=== PATIENT | male | born 1980 | race Caucasian/White ===

== ENCOUNTER 2022-11-03 12:05 | Emergency (ER) | payer OTHER ==
--- OUTSIDE RECORDS SUMMARY | 2022-11-03 12:08 | XMS REPORT | Continuity of Care Document ---
:1980 Author Organization [facility] t Address [address] [facility] [address] [place] [address] Care Team Providers Name Role Phone Delmer Galarza Attending Clinician Unavailable Payers Payer Name Policy Type Policy Number Effective Date Expiration Date S [facility] [employer] 6 [id number] Common Spiri t Blue Shield [facility] GBRP 53 [id number] 2019 Common Spiri t CLAIMS 00:00:00 [facility] Problems Condition Condition Condition Status Onset Resolution Last Treating Co mments Source Name Details Category Date Date Treatment Clinician Date Body mass Body mass Problem Com mon index 40+ index Spirit - severely (BMI) of - CH I obese 45.0-49.9 St in [facility] [id number] Other Problem Common obesity Spirit due to - [facility] [id number] Erectile Problem Comm on dysfunctio Spirit n, - [facility] unspecifie [facility] d erectile [facility] dysfunctio Medica l n type Center Tinea Tinea Problem Common pedis pedis [facility] [id number] Depression Problem Co mmon with Spirit anxiety [facility] Sleep Sleep Problem Common disorder disorder [facility] Seasonal Allergic Problem Commo n allergic rhinitis, Spiri t rhinitis seasonal [facility] Essential Benign Problem Common hypertensi essential Spi rit on HTN [facility] Arthralgia Arthralgia Problem C ommon [facility] [id number] Body mass Problem Com mon index Spirit [BMI] [facility] 33.0-33.9, [facility] Allergies, Adverse Reactions, Alerts Allergy Allergy Status Severity Reaction(s) Onset Inactive Treating Comm ents Source Name Type Date Date Clinician Oscar Moore Active Rash Common [facility] Social History Social Habit Start Date Stop Date Quantity Comments Source History of Tobacco Current Smoker Co mmon [facility] Use [facility] Sex Assigned At Com [facility] Smoking Status Start Date Stop Date Source Current Smoker 2022-09-19 00:00:00 Common Spiri t [facility] Medications Ordered Filled Start Stop Current Ordering Indication Dosage Frequency Signature Comments Components Source Medication Medication Date Date Medication? Clinician (SIG) Name Name Sildenafil Sildenafil 2022- No 1{table QD Sildenafil Citrate 50 Citrate 50 09-19 t_as_ne Citrate 50 MG MG 00:00: 00:00 eded} MG 00 :00 Sildenafil Sildenafil 2022- No 1{table QD Sildenafil Citrate 50 Citrate 50 09-19 t_as_ne Citrate 50 MG MG 00:00: 00:00 eded} MG 00 :00 Lexapro 10 Lexapro 10 No 1{table QD Lexapro 10 MG MG 8-29 t} MG 00:00: 00 Lexapro 10 Lexapro 10 No 1{table QD Lexapro 10 MG MG 8-29 t} MG 00:00: 00 Lexapro 10 Lexapro 10 No 1{table QD Lexapro 10 MG MG 8-29 t} MG 00:00: 00 Amlodipine- Amlodipine- 2019-0 Yes Delmer 1 tablet Common Olmesartan Olmesartan 4-21 Galarza Sp binh 00:00: - [facility] Dexamethaso Dexamethaso 2017- No 8mg Common ne ne 2 Spirit 00:00: - [facility] Dexamethaso Dexamethaso 2017- No 8mg Common ne ne 10-06 Spirit 00:00: - [facility] Dexamethaso Dexamethaso 2017- No 8mg Common ne ne 2 Spirit 00:00: - [facility] Dexamethaso Dexamethaso 2018-1 No 8mg Common ne ne 10-06 Spirit 00:00: - [facility] Dexamethaso Dexamethaso 2018- No 8mg Common ne ne 10-06 Spirit 00:00: - [facility] Dexamethaso Dexamethaso 2018-1 No 8mg Common ne ne 10-06 Spirit 00:00: - [facility] Dexamethaso Dexamethaso 2018- No 8mg Common ne ne 10-06 Spirit 00:00: - [facility] Dexamethaso Dexamethaso 2018-1 No 8mg Common ne ne 10-06 Spirit 00:00: - [facility] amLODIPine- amLODIPine- No 1{table QD amLODIPine Olmesartan Olmesartan t} -Olmesarta 10-20 MG 10-20 MG n 10-20 MG amLODIPine- amLODIPine- No 1{table QD amLODIPine Olmesartan Olmesartan t} -Olmesarta 10-20 MG 10-20 MG n 10-20 MG Lexapro 10 Lexapro 10 No 1{table QD Lexapro 10 MG MG t} MG Lexapro 10 Lexapro 10 No 1{table QD Lexapro 10 MG MG t} MG amLODIPine- amLODIPine- No 1{table QD amLODIPine Olmesartan Olmesartan t} -Olmesarta 10-20 MG 10-20 MG n 10-20 MG Lexapro 10 Lexapro 10 No 1{table QD Lexapro 10 MG MG t} MG amLODIPine- amLODIPine- No 1{table QD amLODIPine Olmesartan Olmesartan t} -Olmesarta 10-20 MG 10-20 MG n 10-20 MG amLODIPine- amLODIPine- No 1{table QD amLODIPine Olmesartan Olmesartan t} -Olmesarta 10-20 MG 10-20 MG n 10-20 MG amLODIPine- amLODIPine- No 1{table QD amLODIPine Olmesartan Olmesartan t} -Olmesarta 10-20 MG 10-20 MG n 10-20 MG amLODIPine- amLODIPine- No 1{table QD amLODIPine Olmesartan Olmesartan t} -Olmesarta 10-20 MG 10-20 MG n 10-20 MG amLODIPine- amLODIPine- No 1{table QD amLODIPine Olmesartan Olmesartan t} -Olmesarta 10-20 MG 10-20 MG n 10-20 MG Escitalopra Escitalopra Yes Delmer take 1 Common m Oxalate m Oxalate Galarza tablet by Spirit mouth once - [facility] day [facility] amLODIPine- amLODIPine- No 1{table QD amLODIPine Olmesartan Olmesartan t} -Olmesarta 10-20 MG 10-20 MG n 10-20 MG Vital Signs Vital Name Observation Time Observation Value Comments Source height 2022-09-19 09:00:00 69 [in_i] [facility] weight 2022-09-19 09:00:00 220 [lb_av] [facility] bmi 2022-09-19 09:00:00 32.48 kg/m2 [facility] height 2022-08-19 08:00:00 69 [in_i] [facility] weight 2022-08-19 08:00:00 224 [lb_av] [facility] bmi 2022-08-19 08:00:00 33.08 kg/m2 [facility] blood pressure 2022-08-19 08:00:00 130 mm[Hg] Common Spirit - systolic [facility] blood pressure 2022-08-19 08:00:00 72 mm[Hg] Common Spirit - diastolic [facility] height 2022-05-25 11:40:00 69 [in_i] [facility] weight 2022-05-25 11:40:00 225 [lb_av] [facility] temperature 2022-05-25 11:40:00 98 [degF] [facility] bmi 2022-05-25 11:40:00 33.22 kg/m2 [facility] blood pressure 2022-05-25 11:40:00 132 mm[Hg] Common Spirit - systolic [facility] blood pressure 2022-05-25 11:40:00 76 mm[Hg] Common Spirit - diastolic [facility] respiratory rate 2022-03-30 13:00:00 18 /min Comm on [facility] blood pressure 2022-03-30 13:00:00 135 mm[Hg] Common [facility] - systolic [facility] blood pressure 2022-03-30 13:00:00 82 mm[Hg] Common Spirit - diastolic [facility] height 2022-03-30 13:00:00 69 [in_i] Common S pirit [facility] weight 2022-03-30 13:00:00 229.9 [lb_av] [facility] temperature 2022-03-30 13:00:00 98.6 [degF] Common S pirit [facility] bmi 2022-03-30 13:00:00 33.95 kg/m2 [facility] S pirit [facility] oximetry 2022-03-30 13:00:00 99 % Common S pirit [facility] height 2022-02-17 08:20:00 69 [in_i] Common S pirit [facility] weight 2022-02-17 08:20:00 231.2 [lb_av] [facility] temperature 2022-02-17 08:20:00 98.1 [degF] Common S pirit [facility] bmi 2022-02-17 08:20:00 34.14 kg/m2 [facility] S pirit [facility] oximetry 2022-02-17 08:20:00 99 % [facility] S pirit [facility] respiratory rate 2022-02-17 08:20:00 18 /min Comm on [facility] blood pressure 2022-02-17 08:20:00 135 mm[Hg] Common Spirit - systolic [facility] blood pressure 2022-02-17 08:20:00 65 mm[Hg] Common Spirit - diastolic [facility] height 2021-07-07 08:00:00 69 [in_i] Common [facility] weight 2021-07-07 08:00:00 215 [lb_av] Common [facility] temperature 2021-07-07 08:00:00 98 [degF] [facility] bmi 2021-07-07 08:00:00 31.75 kg/m2 Common [facility] blood pressure 2021-07-07 08:00:00 130 mm[Hg] Common [facility] - systolic [facility] blood pressure 2021-07-07 08:00:00 76 mm[Hg] Common [facility] - diastolic [facility] Procedures This patient has no known procedures. Encounters Start End Encounter Admission Attending Care Care Encounter Source Date/Time Date/Time Type Type Clinicians Facility Department ID 2022-10-05 Outpatient Galarza, STLMLC STLMLC [id number] Common 16:31:00 Delmer [id number] [facility] 2022-09-16 Outpatient Galarza, STLMLC STLMLC [id number] Common 15:18:00 Delmer [facility] 2022-08-18 Outpatient Galarza, STLMLC STLMLC [id number] Common 11:09:00 Delmer [facility] 2022-08-17 Outpatient Galarza, STLMLC STLMLC [id number] Common 10:08:00 Delmer [facility] 2022-08-15 Outpatient Galarza, STLMLC STLMLC [id number] Common 12:57:01 Delmer [facility] 2022-08-08 Outpatient Galarza, STLMLC STLMLC [id number] Common 13:05:01 Delmer [facility] 2022-06-22 Outpatient Galarza, STLMLC STLMLC [id number] Common 15:36:01 Delmer [facility] 2022-05-25 Outpatient Galarza, STLMLC STLMLC [id number] Common 11:18:00 Delmer [facility] 2022-03-30 Outpatient Galarza, STLMLC STLMLC [id number] Common 13:04:00 Delmer [facility] 2022-03-29 Outpatient Galarza, STLMLC STLMLC [id number] Common 15:18:00 Delmer [facility] 2022-03-28 Outpatient Galarza, STLMLC STLMLC [id number] Common 14:34:00 Delmer [facility] 2021-09-29 Outpatient Galarza, STLMLC STLMLC [id number] Common 13:56:40 Delmer [facility] 2021-09-29 Outpatient Galarza, STLMLC STLMLC [id number] Common 12:59:05 Delmer [id number] [facility] 2021-09-29 Outpatient Galarza, STLMLC STLMLC [id number] Common 12:39:22 Delmer [id number] [facility] 2021-09-29 Outpatient Galarza, STLMLC STLMLC [id number] Common 11:42:46 Delmer 31522 [facility] 2021-09-29 Outpatient Galarza, STLMLC STLMLC [id number] Common 11:17:39 Delmer [address]3035 [facility] 2021-09-29 Outpatient Galarza, STLMLC STLMLC [id number] Common 11:15:42 Delmer 312[address] [facility] 2022-09-19 2022-09-19 OFFICE STLMLC STLMLC [id number] Co mmon 00:00:00 00:00:00 VISIT Spirit ESTAB PT - [facility] LEVEL 3 [facility] 2022-09-15 2022-09-15 (TEL) STLMLC STLMLC [id number] Co mmon 00:00:00 00:00:00 [facility] 2022-08-19 2022-08-19 OFFICE STLMLC STLMLC [id number] Co mmon 00:00:00 00:00:00 VISIT EST Spir it PT LEVEL 3 [facility] 2022-05-25 2022-05-25 OFFICE STLMLC STLMLC [id number] Co mmon 00:00:00 00:00:00 VISIT EST Spir it PT LEVEL 3 [facility] 2022-05-02 2022-05-02 (TEL) STLMLC STLMLC [id number] Co mmon 00:00:00 00:00:00 [facility] 2022-03-30 2022-03-30 OFFICE STLMLC STLMLC [id number] Co mmon 00:00:00 00:00:00 VISIT EST Spir it PT LEVEL 3 [facility] 2022-02-17 2022-02-17 OFFICE STLMLC STLMLC [id number] Co mmon 00:00:00 00:00:00 VISIT EST Spir it PT LEVEL 3 [facility] 2021-07-07 2021-07-07 OFFICE STLMLC STLMLC [id number] Co mmon 00:00:00 00:00:00 VISIT EST Spir it PT LEVEL 3 [facility] 2021-01-06 2021-01-06 Outpatient STLMLC STLMLC [id number] Common 00:00:00 00:00:00 [facility] 2020-12-04 2020-12-04 Outpatient STLMLC STLMLC [id number] Common 00:00:00 00:00:00 [facility] 2020-11-12 2020-11-12 Outpatient STLMLC STLMLC [id number] Common 00:00:00 00:00:00 [facility] 2020-05-08 2020-05-08 [facility] [id number] Common 08:10:00 08:10:[address] [facility] 2020-01-22 2020-01-22 Out[facility] [id number] Common 10:15:00 10:15:[address] [facility] 2019-12-24 2019-12-24 [facility] [id number] Common 14:00:00 14:00:[address] [facility] 2019-11-27 2019-11-27 Outpatient Henri Moise [id number] Common 14:00:00 14:00:00 t [employer] [facility] Results This patient has no known results.
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
[2022-11-03 13:10] VITALS: TEMP 98.8; O2SAT 97
[2022-11-03 13:12] VITALS: BP 136/87
== END 2022-11-03 12:46 | disposition home or self-care (01) ==
LOC: ER 12:05
DX: S09.90XA Unspecified injury of head, initial encounter (principal); S16.1XXA Strain of muscle, fascia and tendon at neck level, initial encounter; V49.40XA Driver injured in collision with unspecified motor vehicles in traffic accident, initial encounter; I10 Essential (primary) hypertension; Z88.0 Allergy status to penicillin; Z88.5 Allergy status to narcotic agent
CPT/HCPCS: 70450; 72125; 99284